=== PATIENT | male | born 1980 | race Two or more races ===

== ENCOUNTER → 2020-10-02 | Outpatient (REF) | payer OTHER ==
[2020-10-02 16:06] LABS: ALT/SGPT 36 U/L (12-78); BILIRUBIN,TOTAL 0.9 MG/DL (0.2-1.0); BLOOD UREA NITROGEN 13 MG/DL (7-18); CALCIUM LEVEL 9.1 MG/DL (8.5-10.1); CARBON DIOXIDE LEVEL 30 MEQ/L (21-32); CHLORIDE LEVEL 106 MEQ/L (98-107); CHOLESTEROL LEVEL 248 MG/DL (<200); GLOMERULAR FILTRATION RATE > 60.0 (>60); GLUCOSE, FASTING 96 MG/DL (70-100); POTASSIUM SERUM 4.4 MEQ/L (3.5-5.1); SODIUM LEVEL 139 MEQ/L (136-145); TRIGLYCERIDES LEVEL 121 MG/DL (<150)
[2020-10-02 16:07] LABS: ALBUMIN 4.1 GM/DL (3.2-5.2); CHOLESTEROL RISK RATIO 4.203 (<5); HDL CHOLESTEROL 59 MG/DL (>40); LDL CHOLESTEROL 165 MG/DL (<100); NON-HDL-C 189 MG/DL; TOTAL PROTEIN 7.4 GM/DL (6.4-8.2)
[2020-10-02 16:25] LABS: HEMOGLOBIN A1c 5.2 %
== END ==
LOC: M SFHCPLAZ 13:59
PROVIDERS: ATTEND Nurse Practitioner Adult Health
DX: Z00.00 Encounter for general adult medical examination without abnormal findings (principal); Z83.3 Family history of diabetes mellitus; Z13.220 Encounter for screening for lipoid disorders; Z13.29 Encounter for screening for other suspected endocrine disorder

== ENCOUNTER 2021-07-13 01:03 | Emergency (ER) | payer OTHER, SELFPAY ==
[~2021-07-13] VITALS: Ht 177.8 cm; Wt 81.6 kg
[2021-07-13 01:03] VITALS: BP 117/68
[2021-07-13] MEDS ORDERED: ACET-683 PO (01:14)
[2021-07-13 01:22] VITALS: O2SAT 96
== END 2021-07-13 02:16 | disposition home or self-care (01) ==
LOC: M ED 01:03
DX: U07.1 COVID-19 (principal)